=== PATIENT | female | born 1990 | race Caucasian/White ===

== ENCOUNTER → 2025-05-21 15:25 | Outpatient (CLI) | payer OTHER, SELFPAY ==
--- NOTE | 2025-05-21 15:30 | DI.US.S_ITS ---
US breast LT limited: 05/21/2025. BI-RADS: 1 CLINICAL: 34-year old female for left diagnostic breast ultrasound for evaluation of mastitis. 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 The patient is currently on antibiotics and reports that symptoms have improved since starting the antibiotics a few days ago. The patient has continued to pump and drain milk from the breast. She has also been prescribed cabergoline but has not started taking this medication yet. PRIOR EXAMS: 03/07/2023. ULTRASOUND TECHNIQUE: TARGETED Left Breast Ultrasound: Real-time ultrasound exam was performed focused to area of clinical and/or imaging concern. Real-time wagner scale imaging of the area of clinical interest was performed with image documentation. ULTRASOUND FINDINGS Left: There are benign lactational changes. No drainable fluid collection or abscess. No suspicious sonographic finding present. IMPRESSION: Left * No drainable fluid collection or abscess. * No evidence of malignancy. RECOMMENDATIONS Right * Clinical follow up is recommended for the patient's reported left mastitis. If symptoms persist or fail to improve despite appropriate antibiotic treatment, the patient may return for additional imaging evaluation. COMMENTS: Findings and recommendations were conveyed to the patient during today's evaluation by Dr. Macias. OVERALL ASSESSMENT CATEGORY BI-RADS-1: Negative. ELECTRONICALLY SIGNED: Padmini Macias M.D. on 05/21/2025 at 04:50:18 PM PT Interpreting Station ID: [id number]
== END ==
LOC: US 15:29
PROVIDERS: Family Provider Pediatrics
DX: O91.23 Nonpurulent mastitis associated with lactation (principal)
CPT/HCPCS: 76642